=== PATIENT | male | born 1970 | race Caucasian/White ===

== ENCOUNTER 2019-06-23 18:45 | Emergency (ER) | payer MEDICAID ==
[~2019-06-23] VITALS: Ht 177.8 cm; Wt 79.4 kg
[2019-06-23 19:08] VITALS: BP 165/99
--- NOTE | 2019-06-23 19:22 | NUR ---
DR. DEJESUS BEDSIDE EVALUATING PT
--- NOTE | 2019-06-23 19:36 | NUR ---
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 ACU CHECK 90. A &O X4. BILAT ARM STRENGTH EQUAL. CMS INTACT BILAT EXTREM. VSS. PT STATE SHE SEES SPOTS IN HIS VISION. DENIES ANY HEAD INJURY OR TRUAMA. DENIES ANY GALO WHEN TIRE CAME OFF. 2-3MM PERRLA BRISK. NKA. HX: HTN, DM
[2019-06-23 20:40] VITALS: BP 165/99
--- NOTE | 2019-06-23 20:40 | NUR ---
Patient discharged with v/s stable. Written and verbal after care instructions given and explained. Patient alert, oriented and verbalized understanding of instructions. Ambulatory with steady gait. All questions addressed prior to discharge. ID band removed. Patient advised to follow up with PMD. Rx of MOTRIN WAS given. Patient educated on indication of medication including possible reaction and side effects. Opportunity to ask questions provided and answered. PT STATED HE NO LONGR HAD PAIN 0/10 PRIOR TO D/C
== END 2019-06-23 20:40 | disposition home or self-care (01) ==
LOC: MED 18:45
DX: I10 Essential (primary) hypertension (principal); E11.9 Type 2 diabetes mellitus without complications; Z90.49 Acquired absence of other specified parts of digestive tract; V89.2XXA Person injured in unspecified motor-vehicle accident, traffic, initial encounter; Y93.89 Activity, other specified; Y92.410 Unspecified street and highway as the place of occurrence of the external cause; Y99.8 Other external cause status
CPT/HCPCS: 99282